=== PATIENT | female | born 1980 | race Caucasian/White ===

== ENCOUNTER 2016-02-26 11:34 | Emergency (ER) | payer BC ==
[2016-02-26 14:58] VITALS: BP 139/77
--- NOTE | 2016-02-26 15:46 | UC ---
Throat Pain/Nasal Mike HPI - HPI Summary HPI Summary: 35 yo female with severe sinus pressure and pain x days left facial swelling - History of Current Complaint Chief Complaint: UCRespiratory Stated Complaint: COUGH,COMGESTION,SINUS Time Seen by Provider: 02/26/16 15:21 Hx Last Menstrual Period: beginning of Jan. Onset/Duration: Gradual Onset, Lasting Hours Severity: Moderate Pain Intensity: 6 Pain Scale Used: 0-10 Numeric Cough: None Associated Signs & Symptoms: Positive: Sinus Discomfort, Nasal Discharge Related History: Prior ENT Surgery - sinus surgery, T & A - Epiglottits Risk Factors Epiglottis Risk Factors: Negative - Allergies/Home Medications Allergies/Adverse Reactions: Allergies Allergy/AdvReac Type Severity Reaction Status Date / Time milk Allergy Hives Uncoded 02/26/16 14:58 Home Medications: Home Medications Cold And Sinus Relief P E 2 tab PO Q8HR PRN 02/26/16 [History Confirmed 02/26/16 ] PMH/Surg Hx/FS Hx/Imm Hx Previously Healthy: Yes Endocrine History Of: Denies: Diabetes, Thyroid Disease Cardiovascular History Of: Denies: Cardiac Disorders, Hypertension Respiratory History Of: Reports: Asthma - Surgical History Surgical History: Yes Surgery Procedure, Year, and Place: T & A, R knee - Family History Known Family History: Positive: Hypertension, Diabetes - Social History Alcohol Use: Occasionally Substance Use Type: None Smoking Status (MU): Former Smoker Type: Cigarettes Length of Time of Smoking/Using Tobacco: 12 yrs When Did the Patient Quit Smoking/Using Tobacco: 9 yrs ago Review of Systems Constitutional: Negative Skin: Negative Eyes: Negative ENT: Dental Pain, Ear Ache, Nasal Discharge Respiratory: Cough Cardiovascular: Negative Gastrointestinal: Negative Genitourinary: Negative Motor: Negative Neurovascular: Negative Musculoskeletal: Negative Neurological: Negative Psychological: Negative All Other Systems Reviewed And Are Negative: Yes Physical Exam Triage Information Reviewed: Yes Appearance: Well-Appearing, No Pain Distress, Well-Nourished Vital Signs: Initial Vital Signs Temp 97.5 F 02/26/16 14:52 Pulse 84 02/26/16 14:52 Resp 20 02/26/16 14:52 BP 139/77 02/26/16 14:52 Pulse Ox 100 02/26/16 14:52 Vital Signs Reviewed: Yes Eyes: Positive: Conjunctiva Clear ENT: Positive: Hearing grossly normal, Nasal congestion, Nasal drainage, Other: - bilateral max sinus tenderness Neck: Positive: Supple, Nontender Respiratory: Positive: Lungs clear, Normal breath sounds, No respiratory distress Cardiovascular: Positive: RRR, No Murmur Musculoskeletal: Positive: ROM Intact, No Edema Neurological Exam: Normal Neurological: Positive: Alert Psychological Exam: Normal Skin Exam: Normal Throat Pain/Nasal Course/Dx - Differential Dx/Diagnosis Provider Diagnoses: acute sinusitis Discharge - Discharge Plan Condition: Stable Disposition: HOME Prescriptions: Amoxicillin/Clavulanate TAB* [Augmentin TAB 875*] 875 mg PO BID #20 tab Fluconazole 150 MG (NF) [Diflucan 150 mg (NF)] 150 mg PO WEEKLY #2 tab Patient Education Materials: Sinusitis (ED) Forms: *Work Release Referrals: Non Staff,Doctor [Primary Care Provider] - Additional Instructions: take diflucan if you develop a yeast infection may repeat in one week if necessary recheck in 4-7 days if not better
== END 2016-02-26 16:03 | disposition home or self-care (01) ==
LOC: UCCORT 11:34
DX: J01.90 Acute sinusitis, unspecified (principal); R22.0 Localized swelling, mass and lump, head; Z87.891 Personal history of nicotine dependence
CPT/HCPCS: 99212; G0463

== ENCOUNTER 2016-12-12 08:16 | Emergency (ER) | payer BC ==
[2016-12-12 08:25] VITALS: BP 120/74
--- NOTE | 2016-12-12 08:29 | UC ---
Knee Pain HPI - HPI Summary HPI Summary: 36 year old female with knee pain. states had a right knee meniscus repair in 2014 and since then knee hasn't fully recovered. States last night began having severe pain and was unable to walk up the stairs. 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 Currently c/o pain behind knee when trying to straighten it. No trauma. no falls. no injury. no SOB or CP. Pain with walking [ End ] - History of Current Complaint Chief Complaint: UCLowerExtremity Stated Complaint: RIGHT KNEE PAIN Time Seen by Provider: 12/12/16 08:27 Hx Obtained From: Patient Hx Last Menstrual Period: 12/01/16 Onset/Duration: Sudden Onset Severity Initially: Moderate Severity Currently: Moderate Character: Sharp Aggravating Factor(s): Movement, Weight Bearing, Stairs Alleviating Factor(s): Rest Related History: Similar Episode/Dx as - Allergies/Home Medications Allergies/Adverse Reactions: Allergies Allergy/AdvReac Type Severity Reaction Status Date / Time milk Allergy Hives Uncoded 12/12/16 08:25 PMH/Surg Hx/FS Hx/Imm Hx Previously Healthy: Yes - Surgical History Surgical History: Yes Surgery Procedure, Year, and Place: T & A, R knee - Family History Known Family History: Positive: Hypertension, Diabetes - Social History Occupation: Employed Full-time Lives: With Family Alcohol Use: Weekly Substance Use Type: None Smoking Status (MU): Former Smoker Type: Cigarettes Length of Time of Smoking/Using Tobacco: 12 yrs When Did the Patient Quit Smoking/Using Tobacco: 9 yrs ago - Immunization History Most Recent Influenza Vaccination: no Review of Systems Musculoskeletal: Arthralgia, Decreased ROM Is Patient Immunocompromised?: No All Other Systems Reviewed And Are Negative: Yes Physical Exam Triage Information Reviewed: Yes Appearance: Well-Appearing, Well-Nourished, Pain Distress - moderate Vital Signs: Initial Vital Signs Temp 98.3 F 12/12/16 08:20 Pulse 66 12/12/16 08:20 Resp 14 12/12/16 08:20 BP 120/74 12/12/16 08:20 Pulse Ox 100 12/12/16 08:20 Vital Signs Reviewed: Yes Respiratory Exam: Normal Cardiovascular Exam: Normal Musculoskeletal: Positive: Strength Intact, ROM Limited @ - pain with extension. neg homans. medial joint line tenderness and patellar tenderness. no ecchymosis. no erythema. no edema. no effusion. antalgic gait. skin warm and dry and intact. Negative: Edema @ Neurological Exam: Normal Psychological Exam: Normal Skin Exam: Normal Knee Pain Course/Dx - Course Course Of Treatment: Refer to Ortho, discussed ICE/ NSAIDs/ APAP . Could be torn ligament/meniscus on previously operated knee - Differential Dx/Diagnosis Differential Diagnosis/HQI/PQRI: Bursitis, Internal Derangement Of Knee, Patellofemoral Syndrome, Sprain, Strain, Tendonitis Provider Diagnoses: internal derangement of the right knee Discharge - Discharge Plan Condition: Good Disposition: HOME Patient Education Materials: Meniscus Tear (ED) Forms: *Work Release Referrals: Reed Rojas MD [Medical Doctor] -
== END 2016-12-12 08:58 | disposition home or self-care (01) ==
LOC: UCCORT 08:16
DX: M23.91 Unspecified internal derangement of right knee (principal); Z91.011 Allergy to milk products
CPT/HCPCS: 99213; G0463

== ENCOUNTER 2017-01-27 09:14 | Emergency (ER) | payer BC ==
[2017-01-27 09:39] VITALS: BP 122/66
--- NOTE | 2017-01-27 09:50 | UC ---
Throat Pain/Nasal Mike HPI - HPI Summary HPI Summary: sinus pain and pressure x 5 days cold sx x 10 days with nasal congestion, pnd, cough no fever, + chills - History of Current Complaint Chief Complaint: UCGeneralIllness Stated Complaint: EARS COUGH CONGESTION Time Seen by Provider: 01/27/17 09:42 Hx Obtained From: Patient Hx Last Menstrual Period: presently ?: No Onset/Duration: Gradual Onset, Lasting Weeks - 5, Still Present Severity: Moderate Cough: Nonproductive Associated Signs & Symptoms: Positive: Sinus Discomfort, Nasal Discharge. Negative: Fever - Allergies/Home Medications Allergies/Adverse Reactions: Allergies Allergy/AdvReac Type Severity Reaction Status Date / Time milk Allergy Hives Uncoded 12/17/16 14:02 Home Medications: Home Medications Misc Natural Products [Osteo Bi-Flex Joint Shiel] 01/27/17 [History] PMH/Surg Hx/FS Hx/Imm Hx Previously Healthy: Yes - Surgical History Surgical History: Yes Surgery Procedure, Year, and Place: T & A, R knee TORN MENISCUS - Family History Known Family History: Positive: Hypertension, Diabetes - Social History Alcohol Use: Weekly Substance Use Type: None Smoking Status (MU): Former Smoker Type: Cigarettes Length of Time of Smoking/Using Tobacco: 12 yrs When Did the Patient Quit Smoking/Using Tobacco: 9 yrs ago - Immunization History Most Recent Influenza Vaccination: not current Review of Systems Constitutional: Negative Skin: Negative Eyes: Negative ENT: Ear Ache, Nasal Discharge, Sinus Congestion, Sinus Pain/Tenderness Respiratory: Cough Cardiovascular: Negative Gastrointestinal: Negative Is Patient Immunocompromised?: No All Other Systems Reviewed And Are Negative: Yes Physical Exam Triage Information Reviewed: Yes Appearance: Well-Appearing, No Pain Distress, Well-Nourished Vital Signs: Initial Vital Signs Temp 97.5 F 01/27/17 09:35 Pulse 72 01/27/17 09:35 Resp 18 01/27/17 09:35 BP 122/66 01/27/17 09:35 Pulse Ox 99 01/27/17 09:35 Vital Signs Reviewed: Yes Eye Exam: Normal Eyes: Positive: Conjunctiva Clear ENT: Positive: Normal ENT inspection, Hearing grossly normal, Pharynx normal, Nasal congestion, Nasal drainage, TMs normal, Sinus tenderness. Negative: TM bulging, TM dull, TM red Neck: Positive: Supple, Nontender, No Lymphadenopathy Respiratory: Positive: Chest non-tender, Lungs clear, Normal breath sounds Cardiovascular: Positive: RRR, No Murmur, Pulses Normal Neurological Exam: Normal Skin Exam: Normal Throat Pain/Nasal Course/Dx - Differential Dx/Diagnosis Provider Diagnoses: sinusitis Discharge - Discharge Plan Condition: Stable Disposition: HOME Prescriptions: Amoxicillin/Clavulanate TAB* [Augmentin TAB 875*] 875 mg PO BID #20 tab Fluconazole [Diflucan 150 MG (NF)] 150 mg PO ONCE #1 tab Patient Education Materials: Sinusitis (ED) Referrals: Alvina Jones MD [Primary Care Provider] - If Needed
== END 2017-01-27 09:52 | disposition home or self-care (01) ==
LOC: UCCORT 09:14
DX: J32.9 Chronic sinusitis, unspecified (principal); Z87.891 Personal history of nicotine dependence
CPT/HCPCS: 99212; G0463

== ENCOUNTER 2017-03-08 18:20 | Emergency (ER) | payer BC ==
[2017-03-08 18:37] VITALS: BP 124/78
[2017-03-08] MEDS ORDERED: Cephalexin CAP* 500 MG PO ONE (19:02)
--- NOTE | 2017-03-08 19:06 | UC ---
Throat Pain/Nasal Mike HPI - HPI Summary HPI Summary: sinus congestion, sore throat, ear pressure, SOB and cough on exertion - History of Current Complaint Chief Complaint: UCGeneralIllness Stated Complaint: BHATTI/NAUSEA/FEVER Time Seen by Provider: 03/08/17 18:48 Hx Obtained From: Patient Hx Last Menstrual Period: 02/18/17 ?: No Onset/Duration: Sudden Onset, Lasting Days Severity: Moderate Associated Signs & Symptoms: Positive: Dysphagia, Wheezing, Sinus Discomfort, Nasal Discharge - Allergies/Home Medications Allergies/Adverse Reactions: Allergies Allergy/AdvReac Type Severity Reaction Status Date / Time milk Allergy Hives Uncoded 03/08/17 18:36 PMH/Surg Hx/FS Hx/Imm Hx Previously Healthy: Yes - Surgical History Surgical History: Yes Surgery Procedure, Year, and Place: T & A, R knee TORN MENISCUS - Family History Known Family History: Positive: Hypertension, Diabetes - Social History Alcohol Use: Weekly Substance Use Type: None Smoking Status (MU): Former Smoker Type: Cigarettes Length of Time of Smoking/Using Tobacco: 12 yrs When Did the Patient Quit Smoking/Using Tobacco: 9 yrs ago - Immunization History Most Recent Influenza Vaccination: not current Review of Systems Constitutional: Fever, Fatigue Skin: Negative Eyes: Negative ENT: Sore Throat, Ear Ache, Nasal Discharge, Sinus Congestion, Sinus Pain/ Tenderness Respiratory: Shortness Of Breath, Cough Cardiovascular: Negative Gastrointestinal: Negative Genitourinary: Negative Motor: Negative Neurovascular: Negative Musculoskeletal: Negative Neurological: Headache Psychological: Negative Is Patient Immunocompromised?: No All Other Systems Reviewed And Are Negative: Yes Physical Exam Triage Information Reviewed: Yes Appearance: Well-Appearing, Well-Nourished, Pain Distress Vital Signs: Initial Vital Signs Temp 97.6 F 03/08/17 18:32 Pulse 106 03/08/17 18:32 Resp 18 03/08/17 18:32 BP 124/78 03/08/17 18:32 Pulse Ox 100 03/08/17 18:32 Vital Signs Reviewed: Yes Eye Exam: Normal ENT: Positive: Pharyngeal erythema - pharyngeal exudate, Nasal congestion, Nasal drainage, TM bulging, Sinus tenderness Dental Exam: Normal Neck exam: Normal Neck: Positive: Supple, Nontender, No Lymphadenopathy Respiratory Exam: Normal Respiratory: Positive: Chest non-tender, No respiratory distress, No accessory muscle use, Wheezing, Inspiration Cardiovascular: Positive: No Murmur, Pulses Normal, Tachycardia Abdominal Exam: Normal Abdomen Description: Positive: Nontender, No Organomegaly, Soft Bowel Sounds: Positive: Present Musculoskeletal Exam: Normal Neurological Exam: Normal Psychological Exam: Normal Skin Exam: Normal Throat Pain/Nasal Course/Dx - Course Course Of Treatment: hx obtained, exam performed ,meds reviewed, treated for sinusisits and bronchospasm, neg flu and strep test - Differential Dx/Diagnosis Provider Diagnoses: sinusitis. bronchospasm Discharge - Discharge Plan Condition: Stable Disposition: HOME Prescriptions: Cephalexin CAP* [Keflex CAP*] 500 mg PO BID #13 cap predniSONE TAB* [Deltasone TAB*] 40 mg PO DAILY #14 tab Patient Education Materials: Sinusitis (ED) Referrals: Non Staff,Doctor [Primary Care Provider] - Additional Instructions: 1. take the medication as prescribe. 2 Increase fluid intake and get plenty of rest. 3. Advil for pain and headache 4. Steam showers, vicks, tea to loosen up the sinus congestion. 5. FOllow up as needed.
== END 2017-03-08 19:12 | disposition home or self-care (01) ==
LOC: UCCORT 18:20
DX: J32.9 Chronic sinusitis, unspecified (principal); J98.01 Acute bronchospasm; J02.9 Acute pharyngitis, unspecified; R06.02 Shortness of breath; R05 Cough; Z91.011 Allergy to milk products; Z87.891 Personal history of nicotine dependence
CPT/HCPCS: 87502; 87651; 99212; A9270-GY; G0463

== ENCOUNTER 2017-03-30 09:03 | Emergency (ER) | payer BC ==
[2017-03-30 10:01] VITALS: BP 116/66
[2017-03-30] MEDS ORDERED: Ketorolac INJ* 60 MG/2 ML VIAL IM ONE (10:21)
--- NOTE | 2017-03-30 10:21 | UC ---
Back Pain HPI - HPI Summary HPI Summary: for no apparent reason patient began with right SI Pain---radiates down throgh buttock and in to leg---not much relief with otc medication, no know injury - History of Current Complaint Chief Complaint: UCBackPain Stated Complaint: BACK PAIN Time Seen by Provider: 03/30/17 10:13 Hx Obtained From: Patient Hx Last Menstrual Period: 02/18/17 ?: No Onset/Duration: Sudden Onset, Lasting Days - 2, Still Present Timing: Constant Severity Initially: Moderate Severity Currently: Moderate Pain Intensity: 7 Pain Scale Used: 0-10 Numeric Back Pain: Is Discrete @ - right SI Character: Aching, Spasmodic, Stiffness Aggravating Factor(s): Movement, Bending Alleviating Factor(s): Rest, OTC Meds Associated Signs And Symptoms: Negative: Bladder Incontinence, Bowel Incontinence, Pain with Weight Bearing - Allergies/Home Medications Allergies/Adverse Reactions: Allergies Allergy/AdvReac Type Severity Reaction Status Date / Time milk Allergy Hives Uncoded 03/30/17 09:57 Home Medications: Home Medications Aspirin/Acetaminophen/Caffeine [Excedrin Extra Strength Caplet] 3 tab PO ONCE [History Confirmed 03/30/17] Ibuprofen TAB* [Advil TAB*] 600 mg PO Q6H PRN 03/30/17 [History Confirmed ] PMH/Surg Hx/FS Hx/Imm Hx Previously Healthy: Yes - Surgical History Surgical History: Yes Surgery Procedure, Year, and Place: T & A, R knee TORN MENISCUS - Family History Known Family History: Positive: Hypertension, Diabetes - Social History Occupation: Employed Full-time Lives: Alone Alcohol Use: Occasionally Substance Use Type: None Smoking Status (MU): Former Smoker Type: Cigarettes Length of Time of Smoking/Using Tobacco: ~1 PPD x 12 Years When Did the Patient Quit Smoking/Using Tobacco: ~2008 - Immunization History Most Recent Influenza Vaccination: not current Review of Systems Constitutional: Negative Skin: Negative Eyes: Negative ENT: Negative Respiratory: Negative Cardiovascular: Negative Gastrointestinal: Negative Genitourinary: Negative Motor: Negative Neurovascular: Negative Musculoskeletal: Arthralgia - right si joint radiating down buttock in to leg Neurological: Negative Psychological: Negative Is Patient Immunocompromised?: No All Other Systems Reviewed And Are Negative: Yes Physical Exam Triage Information Reviewed: Yes Appearance: Well-Appearing, No Pain Distress, Well-Nourished Vital Signs: Initial Vital Signs Temp 97.9 F 03/30/17 09:55 Pulse 70 03/30/17 09:55 Resp 16 03/30/17 09:55 BP 116/66 03/30/17 09:55 Pulse Ox 100 03/30/17 09:55 Vital Signs Reviewed: Yes Eye Exam: Normal Eyes: Positive: Conjunctiva Clear ENT Exam: Normal ENT: Positive: Normal ENT inspection, Hearing grossly normal, Pharynx normal. Negative: Nasal drainage, Trismus, Muffled voice, Hoarse voice, Dental tenderness, Sinus tenderness Dental Exam: Normal Neck exam: Normal Neck: Positive: Supple, Nontender, No Lymphadenopathy Respiratory Exam: Normal Respiratory: Positive: Chest non-tender, No respiratory distress, No accessory muscle use Cardiovascular Exam: Normal Cardiovascular: Positive: RRR, Pulses Normal, Brisk Capillary Refill Abdomen Description: Negative: CVA Tenderness (R) Musculoskeletal Exam: Normal Musculoskeletal: Positive: Strength Intact, No Edema, ROM Limited @ - low back Neurological Exam: Normal Neurological: Positive: Alert, Muscle Tone Normal Psychological Exam: Normal Skin Exam: Normal Back Pain Course/Dx - Course Course Of Treatment: medrol dose gareth, flexeril, pt referal low back exercise follow with pcp - Differential Dx/Diagnosis Provider Diagnoses: Right Siatic never pain Discharge - Discharge Plan Condition: Stable Disposition: HOME Patient Education Materials: Sciatica (ED), Lower Back Exercises (ED), Core Strengthening Exercises (ED) Forms: *Work Release Referrals: [facility] [place], [place] [facility] [Outside] - 5 Days
== END 2017-03-30 10:51 | disposition home or self-care (01) ==
LOC: UCCORT 09:03
DX: G58.8 Other specified mononeuropathies (principal); Z72.89 Other problems related to lifestyle; Z87.891 Personal history of nicotine dependence
CPT/HCPCS: 96372; 99212; G0463; J1885

== ENCOUNTER → 2017-06-09 11:10 | Emergency (ER) | payer BC ==
[~2017-06-09 11:10] MED LIST: Albuterol 2.5 MG/3 ML NEB.SOL* (0.083%) INH ONE
[2017-06-09 12:36] VITALS: BP 108/68
--- NOTE | 2017-06-09 12:46 | UC ---
General HPI - HPI Summary HPI Summary: pt is c/o a "sinus infection". she describes it as sinus pain, green bloody drainage and fever x 4 days. she had sinus surgery in 2000. she did very well until the past year citing this is her 4th infection and all are c/w her remote hx of sinus infections. pt also admits to cough, wheezing and sob. states she was dx with asthma in college. no cp. - History of Current Complaint Chief Complaint: UCRespiratory Stated Complaint: COUGH,CONGESTION,ST Time Seen by Provider: 06/09/17 12:37 Hx Obtained From: Patient Hx Last Menstrual Period: 05/25/17 Onset/Duration: Gradual Onset Timing: Constant Pain Intensity: 7 Aggravating: lumgs symptoms worse with exertion Associated Signs & Symptoms: Positive: Cough, Fever, Headache, SOB, Wheezing. Negative: Chest Pain - Allergy/Home Medications Allergies/Adverse Reactions: Allergies Allergy/AdvReac Type Severity Reaction Status Date / Time milk Allergy Hives Uncoded 06/09/17 12:36 Home Medications: Home Medications Naproxen Sodium [Naproxen Sodium 275 MG TAB] 2 tab PO ONCE PRN 06/09/17 [ History Confirmed 06/09/17] PMH/Surg Hx/FS Hx/Imm Hx - Additional Past Medical History Additional PMH: sinusitis Respiratory History: Asthma - Surgical History Surgical History: Yes Surgery Procedure, Year, and Place: T & A, R knee TORN MENISCUS, sinus surgery - Family History Known Family History: Positive: Hypertension, Diabetes - Social History Occupation: Employed Full-time Alcohol Use: Occasionally Substance Use Type: None Smoking Status (MU): Former Smoker Type: Cigarettes Length of Time of Smoking/Using Tobacco: ~1 PPD x 12 Years When Did the Patient Quit Smoking/Using Tobacco: ~2008 - Immunization History Most Recent Influenza Vaccination: not current Vaccination Up to Date: Yes Review of Systems Constitutional: Fever Skin: Negative Eyes: Negative ENT: Sinus Congestion, Sinus Pain/Tenderness Respiratory: Shortness Of Breath, Cough Cardiovascular: Negative Gastrointestinal: Negative Genitourinary: Negative Motor: Negative Neurovascular: Negative Musculoskeletal: Negative Neurological: Negative Psychological: Negative Is Patient Immunocompromised?: No All Other Systems Reviewed And Are Negative: Yes Physical Exam Triage Information Reviewed: Yes Appearance: Well-Appearing Vital Signs: Initial Vital Signs Temp 98.4 F 06/09/17 12:21 Pulse 80 06/09/17 12:21 Resp 16 06/09/17 12:21 BP 108/68 06/09/17 12:21 Pulse Ox 98 06/09/17 12:21 Vital Signs Reviewed: Yes Eyes: Positive: Conjunctiva Clear ENT: Positive: Pharynx normal, TMs normal, Sinus tenderness - with green drainage and boddy membranes Neck: Positive: Supple, Nontender, No Lymphadenopathy Respiratory: Positive: No accessory muscle use, Decreased breath sounds, Wheezing - scattered, Other: - cough is congested Cardiovascular: Positive: RRR, No Murmur Abdomen Description: Positive: Nontender, No Organomegaly, Soft. Negative: Distended, Guarding Bowel Sounds: Positive: Present Musculoskeletal: Positive: ROM Intact Neurological: Positive: Alert Psychological: Positive: Age Appropriate Behavior Skin Exam: Normal Re-Evaluation - Re-Evaluation Second Eval Change: Improved - no wheezing, cough and much better aeration. feels better. Course/Dx - Course Course Of Treatment: duration of illness short; however, with fever, bloody- purulent drainage, sinus pain this requires tx with antibiotic plus having asthma flare so will use steroid which will help both. pt advised to start flonase daily. will refer to ent and back to her pcp. - Differential Dx - Multi-Symptom Provider Diagnoses: sinusitis. asthma flare Discharge - Sign-Out/Discharge Documenting (check all that apply): Discharge - Discharge Plan Condition: Stable Disposition: HOME Prescriptions: Albuterol HFA INHALER* [Ventolin HFA Inhaler*] 2 puff INH Q6H #1 mdi Amoxicillin/Clavulanate TAB* [Augmentin TAB 875*] 875 mg PO BID #20 tab predniSONE TAB* [Deltasone TAB*] 40 mg PO DAILY #10 tab Patient Education Materials: Asthma (DC), Sinusitis (ED) Forms: *Work Release Referrals: Alvina Jones MD [Medical Doctor] - 7 Days Tj Butterfield MD [Medical Doctor] - 2 Weeks Additional Instructions: START FLONASE OVER THE COUNTER AND USE DAILY - Billing Disposition and Condition Condition: STABLE Disposition: HOME
== END | disposition home or self-care (01) ==
LOC: UCCORT 11:10
DX: J32.9 Chronic sinusitis, unspecified (principal); J45.909 Unspecified asthma, uncomplicated; Z87.891 Personal history of nicotine dependence
CPT/HCPCS: 99212; G0463

== ENCOUNTER 2017-08-07 16:08 | Emergency (ER) | payer BC ==
--- OUTSIDE RECORDS SUMMARY | 2017-08-07 16:25 | XMS REPORT ---
:1980 External Reference #:[id number] Author Organization [facility] Address [address] [address] Phone [phone] Care Team Providers Name Role Phone Patient's Choice Primary Care Physician Unavailable Payers Type Date Identification Numbers Payment Provider Subscriber Commercial Policy Number: [id number] BS Facets Diana Ho PayID: [id number] [address] [address] [place] [address] Problems Description No Information Family History Date Family Member(s) Problem(s) Comments General Diabetes Father paternal grandfather-heart issues-had triple bipass. 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 Stopped during pregnancies. Cigars Never Smoked Cigars Pipe Never Smoked A Pipe Smokeless Tobacco Never Used Smokeless Tobacco ETOH Use Currently consumes alcohol socially. Maybe 1 or 2 a week Smoking Patient is a former smoker Recreational Drug Use Denies Drug Use Daily Caffeine Consumes on average 3 cups of regular coffee per day Exercise Type/Frequency Exercises regularly Allergies, Adverse Reactions, Alerts Date Description Reaction Status Severity Comments 06/26/2017 Milk Fat, Cow active 12/12/2016 NKDA inactive Medications Medication Date Status Form Strength Qnty SIG Indications Ordering Provider Ibuprofen Active Capsules 200mg 2 or 3 Unknown 00 tabs by mouth as needed Naprosyn 12/24/19 Hx Tablets 500mg 60tabs 1 by mouth M22.41 Reed Vera 17 - twice a MD Bob 06/30/19 day w food 18 Medications Administered in Office Medication Date Status Form Strength Qnty SIG Indications Ordering Provider Celestone 3 mg Administered Injection Reed Vera and 3mg Kriss Rojas MD Vital Signs Date Vital Result Comment 07/14/2017 Height 60.50 inches 5'0.50" Weight 220.00 lb Heart Rate 78 /min BP Systolic Sitting 110 mmHg BP Diastolic Sitting 64 mmHg Respiratory Rate 12 /min Pain Level 0 BMI (Body Mass Index) 42.3 kg/m2 06/30/2017 Height 60.50 inches 5'0.50" Weight 220.00 lb Heart Rate 55 /min BP Systolic 114 mmHg BP Diastolic 82 mmHg Respiratory Rate 16 /min Pain Level 0 O2 % BldC Oximetry 98 % BMI (Body Mass Index) 42.3 kg/m2 03/03/2017 Height 61 inches 5'1" Weight 208.00 lb Heart Rate 72 /min BP Systolic Sitting 110 mmHg BP Diastolic Sitting 64 mmHg Respiratory Rate 18 /min Pain Level 0 BMI (Body Mass Index) 39.3 kg/m2 12/23/2016 Height 61 inches 5'1" Weight 210.00 lb Heart Rate 66 /min BP Systolic Sitting 100 mmHg BP Diastolic Sitting 60 mmHg Respiratory Rate 12 /min Pain Level 3 BMI (Body Mass Index) 39.7 kg/m2 12/12/2016 Height 61 inches 5'1" Weight 205.00 lb Heart Rate 72 /min BP Systolic Sitting 114 mmHg BP Diastolic Sitting 62 mmHg Respiratory Rate 16 /min Pain Level 5 BMI (Body Mass Index) 38.7 kg/m2 Results Description No Information Procedures Date CPT Code Description Status 12/12/2016 43990 Xray Knee 3 Views Completed 12/12/2016 34192 Inject/Drain Joint/Bursa Major Completed Encounters Type Date Location Provider CPT E/M Dx Office Visit 06/30/2017 3:30p [facility] [address] J32.[facility] 03/03/2017 3:00p [place] [address] M22.41 Of [facility] [place] Office Visit 12/23/2016 3:30p [place] [address] M22.41 Of [facility] [place] Office Visit 12/12/2016 10:15a [place] [address] S83.241A Of [facility] AT [place] M25.561 Plan of Care Future Appointment(s):10/20/2017 2:45 pm - Feliciano Moise M.D. at [facility] [place]
[2017-08-07 16:47] VITALS: BP 110/71
[2017-08-07] MEDS ORDERED: Tetan/Diph/Pertus SYR(Tdap)* 0.5 ML SYR(BOOSTRIX) use SYR IM ONE (16:54)
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
== END 2017-08-07 17:30 | disposition home or self-care (01) ==
LOC: UCCORT 16:08
DX: S40.812A Abrasion of left upper arm, initial encounter (principal); S40.811A Abrasion of right upper arm, initial encounter; Y04.8XXA Assault by other bodily force, initial encounter; Y93.9 Activity, unspecified; Y92.219 Unspecified school as the place of occurrence of the external cause; Z87.891 Personal history of nicotine dependence
CPT/HCPCS: 90471; 90715; 99211; G0463

== ENCOUNTER 2018-06-07 14:07 | Emergency (ER) | payer BC ==
[2018-06-07 16:29] VITALS: BP 124/68
--- NOTE | 2018-06-07 16:41 | UC ---
Back Pain HPI - HPI Summary HPI Summary: Doing laundry yesterday with the sudden onset of left sided low back pain radiating down the back of the leg but not to the knee. Some numbness in the toes, but no pain radiating to the toes. - History of Current Complaint Chief Complaint: UCBackPain Stated Complaint: LOW BACK PAIN Time Seen by Provider: 06/07/18 16:33 Hx Obtained From: Patient Hx Last Menstrual Period: "couple weeks ago" ?: No Onset/Duration: Sudden Onset, Lasting Days - 2, Worse Since - today Timing: Constant Severity Initially: Moderate Severity Currently: Severe Pain Intensity: 7 Back Pain: Is Discrete @ - Left SI, Radiates To - left posterior upper leg Aggravating Factor(s): Walking, Other - standing Alleviating Factor(s): Rest, Position Associated Signs And Symptoms: Positive: Numbness - left foot, Tingling - left foot, Pain with Weight Bearing. Negative: Bladder Incontinence, Bowel Incontinence - Allergies/Home Medications Allergies/Adverse Reactions: Allergies Allergy/AdvReac Type Severity Reaction Status Date / Time milk Allergy Hives Uncoded 06/07/18 16:26 Home Medications: Home Medications NK [No Home Medications Reported] 06/07/18 [History Confirmed 06/07/18] PMH/Surg Hx/FS Hx/Imm Hx Previously Healthy: Yes - Surgical History Surgical History: Yes Surgery Procedure, Year, and Place: T & A, R knee TORN MENISCUS, sinus surgery 2000 - Family History Known Family History: Positive: Cardiac Disease, Hypertension, Diabetes - Social History Occupation: Employed Full-time Lives: With Family Alcohol Use: Occasionally Alcohol Amount: 1-2 Substance Use Type: None Smoking Status (MU): Former Smoker Type: Cigarettes Length of Time of Smoking/Using Tobacco: ~1 PPD x 12 Years When Did the Patient Quit Smoking/Using Tobacco: ~2008 - Immunization History Most Recent Influenza Vaccination: not current Most Recent Tetanus Shot: 2007 Vaccination Up to Date: Yes Review of Systems All Other Systems Reviewed And Are Negative: Yes Musculoskeletal: Positive: Arthralgia - left lower back Is Patient Immunocompromised?: No Physical Exam Triage Information Reviewed: Yes Appearance: Well-Appearing, Pain Distress - moderate to severe, Obese Vital Signs: Initial Vital Signs Temp 97.6 F 06/07/18 16:26 Pulse 74 06/07/18 16:26 Resp 16 06/07/18 16:26 BP 124/68 06/07/18 16:26 Pulse Ox 100 06/07/18 16:26 Vital Signs Reviewed: Yes Eyes: Positive: Conjunctiva Clear Neck exam: Normal Respiratory Exam: Normal Cardiovascular Exam: Normal Musculoskeletal: Positive: ROM Limited @ - Lumbar spine Neurological Exam: Normal Psychological Exam: Normal Skin Exam: Normal Procedures - Procedure Summary Procedure Summary: Injection left SI joint: Consent and time out done. Betadine prep. 7 cc injected in 3 point approach above the left SI. 1 cc kenalog 40, 3cc each 1% xylocaine and 0.25% bupivacaine. Pt tolerated the procedure well. Excellent pain relief. Back Pain Course/Dx - Differential Dx/Diagnosis Differential Diagnosis/HQI/PQRI: Arthritis, Herniated Disc, Strain, Sprain Provider Diagnosis: Sacroiliitis Discharge - Sign-Out/Discharge Documenting (check all that apply): Patient Departure All imaging exams completed and their final reports reviewed: No Studies - Discharge Plan Condition: Stable Disposition: HOME Patient Education Materials: Sacroiliitis (ED), Sacroiliac Joint Injection (DC) Referrals: Maria Arnold NP [Primary Care Provider] - Additional Instructions: Please make follow up with chiropractor tomorrow. If the pain is worse tomorrow, use ice over the area. - Billing Disposition and Condition Condition: STABLE Disposition: Home
[2018-06-07] MEDS ORDERED: Bupivacaine 0.5%* 50 ML VIAL INJ ONE (16:44)
[2018-06-07] MEDS ORDERED: Triamcinolone Acetonide* 40 MG/ML 1 ML VIAL INTRAARTIC ONE (16:44)
[2018-06-07] MEDS ORDERED: Lidocaine 1% MPF* 2 ML VIAL INJ ONE (16:44)
[2018-06-07] MEDS ORDERED: Bupivacaine 0.25% SDV* 30 ML INJ ONE (16:48)
[2018-06-07] MEDS ORDERED: Bupivacaine 0.25% SDV PF* 10 ML VIAL INJ ONE (16:48)
== END 2018-06-07 17:17 | disposition home or self-care (01) ==
LOC: UCCORT 14:07
DX: M46.1 Sacroiliitis, not elsewhere classified (principal); E66.9 Obesity, unspecified; Z68.39 Body mass index [BMI] 39.0-39.9, adult; Z87.891 Personal history of nicotine dependence
CPT/HCPCS: 20552; 99211; G0463; J3301; J3490

== ENCOUNTER 2019-04-28 15:46 | Emergency (ER) | payer BC ==
--- OUTSIDE RECORDS SUMMARY | 2019-04-28 16:17 | XMS REPORT ---
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, menstruation with regular [place] [address] cycle N92.0 and Encounter for insertion of intrauterine contraceptive device Z30.430 [facility] [address] Jan, OBGYN [place], [place] [id number] [facility] [address] Jan, Excessive and frequent OBGYN [facility], menstruation with regular [place] [address] cycle N92.0 and Dysplasia of vulva, unspecified N90.3 [facility] 103 Sep, Excessive and frequent OBGYN [facility], menstruation with regular [place] [address] cycle N92.0 and Dysplasia of vulva, unspecified N90.3 [facility] [address] Aug, OBGYN [facility] [place] [id number] [facility] 103 Aug, Dysplasia of vulva, OBGYN [facility], unspecified N90.3 [place] [id number] [facility] 103 Aug, Excessive and frequent OBGYN [facility], menstruation with regular [place] [address] cycle N92.0 [facility] 103 Aug, OBGYN [facility], [place] [id number] [facility] 103 Aug, Excessive and frequent OBGYN [facility], menstruation with regular [place] [address] cycle N92.0 and Dysplasia of vulva, unspecified N90.3 [facility] 103 Jul, Excessive and frequent OBGYN [facility], menstruation with regular [place] [address] cycle N92.0 and Dysplasia of vulva, unspecified N90.3 [facility] 103 Jul, Excessive and frequent OBGYN [facility], menstruation with regular [place] [address] cycle N92.0 and Dysplasia of vulva, unspecified N90.3 [facility] 103 Jul, OBGYN [facility], [place] [id number] [facility] [address] June, OBGYN [facility], [place] [id number] [facility] 103 June, Excessive and frequent OBGYN [facility], menstruation with regular [place] [address] cycle N92.0 and Noninflammatory disorder of vulva and perineum, unspecified N90.9 [facility] June, Irregular menstruation, OBGYN [facility], unspecified N92.6 [place] [id number] [facility] June, Irregular menstruation, OBGYN [facility], unspecified N92.6 and [place] [id number] Excessive and frequent menstruation with regular cycle N92.0 [facility] [address] June, Encounter for [facility], gynecological examination [place] [id number] (general) (routine) with abnormal findings Z01.411 ; Encounter for screening for malignant neoplasm of cervix Z12.4 ; Irregular menstruation, unspecified N92.6 and Noninflammatory disorder of vulva and perineum, unspecified N90.9 [facility] May, [facility] [place] [id number] [facility] May, Menorrhagia 626.2 ; [facility] 625.9 and Abdominal [place] [id number] pain, right upper quadrant 789.01 [facility] May, Menorrhagia [address]26.[address] [facility], Dyspareunia 625.0 [place] [id number] [facility] Apr, Menorrhagia [address]26.[address] [facility], Dyspareunia 625.0 [place] [id number] IMMUNIZATIONS No Known Immunizations SOCIAL HISTORY Never Assessed REASON FOR REFERRAL FUNCTIONAL STATUS PLAN OF CARE VITAL SIGNS MEDICATIONS Unknown Medications PROCEDURES No Known procedures RESULTS No Results REASON FOR VISIT Anjel jauregui Insurance Providers [facility] Member Patient Patient Patient Patient Patient Subscriber Subscriber Subscriber Group Insurance Plan Plan Plan Plan ID Relationship Address Phone Name Date of ID Name Date of No Type Insurance Insurance Insurance Coverage to Subscriber Address Phone Name Dates [employer] [phone] Leydi self Diana [id number] Blue [id number] Blue [place] 2 Cross/Blue [place] Cross/Blue [place] Shield [id number] Shield MEDICAL (GENERAL) HISTORY Type Description Date Medical History asthma Surgical History adnoidectomy/deviated septum 2000 Surgical History tonsilectomy 2010 Surgical History right meniscus repair 2013 Hospitalization History see above Hospitalization History child x 4
--- OUTSIDE RECORDS SUMMARY | 2019-04-28 16:17 | XMS REPORT ---
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 281740860 unspecified Problem Noninflammatory N90.9 Active 576365418 disorder of vulva and perineum, unspecified Problem Irregular N92.6 Active 88215721 menstruation, unspecified ALLERGIES Substance Reaction Event Type Date Status Milk hives/trouble breathing Drug Allergy Mar, Active ENCOUNTERS Encounter Location Date Diagnosis [facility] [address] Sep, [place] [id number] [facility] [address] June, OBGYN [place], [place] [id number] [facility] 103 Mar, Excessive and frequent OBGYN [facility], menstruation with regular [place] [address] cycle N92.0 and Dysplasia of vulva, unspecified N90.3 [facility] Feb, Encounter for routine OBGYN [facility], checking of intrauterine [place] [id number] contraceptive device Z30.431 [facility] 103 Jan, Excessive and frequent OBGYN [facility], menstruation with regular [place] [address] cycle N92.0 and Encounter for insertion of intrauterine contraceptive device Z30.430 [facility] Jan, OBGYN [facility], [place] [id number] [facility] 103 Jan, Excessive and frequent OBGYN [facility], menstruation with regular [place] [address] cycle N92.0 and Dysplasia of vulva, unspecified N90.3 [facility] 103 Sep, Excessive and frequent OBGYN [facility], menstruation with regular [place] [address] cycle N92.0 and Dysplasia of vulva, unspecified N90.3 [facility] 103 Aug, OBGYN [facility], [place] [id number] [facility] 103 Aug, Dysplasia of vulva, OBGYN [facility], unspecified N90.3 [place] [id number] [facility] 103 Aug, Excessive and frequent OBGYN [facility], menstruation with regular [place] [address] cycle N92.0 [facility] 103 Aug, OBGYN [facility], [place] [id number] [facility] 103 Aug, Excessive and frequent OBGYN [facility], menstruation with regular [place] [address] cycle N92.0 and Dysplasia of vulva, unspecified N90.3 [facility] 103 Jul, Excessive and frequent OBGYN [facility], menstruation with regular [place] [address] cycle N92.0 and Dysplasia of vulva, unspecified N90.3 [facility] 103 Jul, Excessive and frequent OBGYN [facility], menstruation with regular [place] [address] cycle N92.0 and Dysplasia of vulva, unspecified N90.3 [facility] 103 Jul, [place]BG[place], [place] [id number] [facility] [address] June, [place]BG[place], [place] [id number] [facility] [address] June, Excessive and frequent OBGYN [facility], menstruation with regular [place] [address] cycle N92.0 and Noninflammatory disorder of vulva and perineum, unspecified N90.9 [facility] [address] June, Irregular menstruation, OBGYN [facility], unspecified N92.6 [place] [id number] [facility] [address] June, Irregular menstruation, OBGYN [facility], unspecified N92.6 and [place] [id number] Excessive and frequent menstruation with regular cycle N92.0 [facility] [address] June, [facility] [place] [id number] (general) (routine) with abnormal findings Z01.411 ; Encounter for screening for malignant neoplasm of cervix Z12.4 ; Irregular menstruation, unspecified N92.6 and Noninflammatory disorder of vulva and perineum, unspecified N90.9 [facility] [address] May, OBGYN [place], [place] [id number] [facility] [address] May, Menorrhagia 626.2 ; PELVIC OBGYN [facility], PAIN 625.9 and Abdominal [place] [id number] pain, right upper quadrant 789.01 [facility] [address] May, Menorrhagia 626.2 and OBGYN [facility], Dyspareunia 625.0 [place] [id number] [facility] 103 Apr, Menorrhagia 626.2 and OBGYN [facility], Dyspareunia 625.0 [place] [id number] IMMUNIZATIONS No Known Immunizations SOCIAL HISTORY Never Assessed REASON FOR REFERRAL FUNCTIONAL STATUS PLAN OF CARE Activity Details Follow Up Schedule vulvar colpo in 6 months. Annual scheduled in June. Reason: VITAL SIGNS Height 61 in 2019-04-12 Weight 221 lbs 2019-04-12 BMI 41.75 kg/m2 2019-04-12 Blood pressure systolic 108 mm Hg 2019-04-12 Blood pressure diastolic 70 mm Hg 2019-04-12 MEDICATIONS Medication Instructions Dosage Frequency Start End Date Duration Status Date Liletta 52 mg by intrauterine 1 ea 1 dose(s) Active administration once Strattera 80 orally once a day 1 cap(s) 30 day(s) Active mg (in the morning) PROCEDURES Procedure Date Ordered Result Body Site COLPO EXAM OF VULVA W/SCOPE Apr 12, 2019 RESULTS No Results REASON FOR VISIT Vulvar Colpo Insurance Providers [facility] Member Patient Patient Patient Patient Patient Subscriber Subscriber Subscriber Group Insurance Plan Plan Plan Plan ID Relationship Address Phone Name Date of ID Name Date of No Type Insurance Insurance Insurance Coverage to Subscriber Address Phone Name Dates Leydi [phone] Leydi self Diana [id number] Blue [id number] Blue [place] 2 Cross/Blue [place] Cross/Blue y Shield [id number] Shield MEDICAL (GENERAL) HISTORY Type Description Date Medical History asthma Surgical History adnoidectomy/deviated septum 2000 Surgical History tonsilectomy 2010 Surgical History right meniscus repair 2013 Hospitalization History see above Hospitalization History child x 4
--- OUTSIDE RECORDS SUMMARY | 2019-04-28 16:17 | XMS REPORT | Continuity of Care Document ---
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 Problems Description No Active Problems Social History Type Date Description Comments Sex Unknown Tobacco Use Start: Unknown End: Quit 2005 Unknown ETOH Use Occasionally consumes alcohol Tobacco Use Start: Unknown End: Patient is a former started age 13 - smoker less than 10 pack year history Smoking Status Reviewed: 04/06/19 Patient is a former started age 13 - smoker less than 10 pack year history Exercise Exercises regularly Type/Frequency Allergies, Adverse Reactions, Alerts Active Allergies Reaction Severity Comments Date Milk Fat, Cow 01/26/2018 Inactive Allergies NKDA 12/02/2012 NKDA 09/09/2014 Medications Active Medications SIG Qnty Indications Ordering Provider Date Strattera 1 tab PO QHS x 7 60caps F90.0 [place], 03/15/2019 40mg Capsules days then Jenniferleigh, increase to two TIMBER SIZER OPERATOR PO QHS Ondansetron HCL 1 tab every 6hr [facility]tabs [facility], 03/15/2019 4mg as needed for Cassius, Tablets nausea TIMBER SIZER OPERATOR Ibuprofen prn Shakira, 200mg Tablets MD Anjel House (52 MG) remove in 6 years Unknown 01/2025 19.5mcg/Day IUD Medications Administered in Office Medication SIG Qnty Indications Ordering Provider Date PPD Family Nurse 03/12/2019 Injection Depomedrol 40mg/1cc Lawsing, Som F., MD, 12/02/2012 (methylprednisolone acetate) FACS Injection Depomedrol 40mg/1cc Tj Rosen D.O. 12/02/2012 (methylprednisolone acetate) Injection Immunizations CPT Code Status Date Vaccine Lot # [id number] Given 03/15/2019 Influenza Virus Vaccine, Quadrivalent, 36 Mos+, [id number] .[id number] Given 12/15/2017 Influenza Virus Vaccine, Quadrivalent, 36 Mos+, [id number] .[id number] Given 11/13/2009 flu vaccination Vital Signs Date Vital Result Comment 04/06/2019 3:15pm BP Systolic 110 mmHg BP Diastolic 68 mmHg Body Temperature 98.1 F Heart Rate 87 /min Respiratory Rate 18 /min Height 61 inches 5'1" Weight 220.38 lb BMI (Body Mass Index) 41.6 kg/m2 BSA (Body Surface Area) 1.97 m2 [place] body weight in kilograms 48 kg O2 % BldC Oximetry 98 % 03/15/2019 11:39am BP Systolic 109 mmHg BP Diastolic 74 mmHg Body Temperature 98.2 F Heart Rate 91 /min Respiratory Rate 18 /min Height 61 inches 5'1" Weight 222.50 lb BMI (Body Mass Index) 42.0 kg/m2 BSA (Body Surface Area) 1.98 m2 [place] body weight in kilograms 48 kg O2 % BldC Oximetry 99 % Results Description No Information Available Procedures Description No Information Available Medical Devices Description No Information Available Encounters Type Date Location Provider Dx Diagnosis Office Visit 04/06/2019 [facility] [place], F90.0 Attn-defct 3:[address] anthony Hammonds disorder, predom inattentive type F41.9 Anxiety disorder, unspecified Office Visit 03/15/2019 [facility] [place], Z00.01 Encounter for 11:[facility] [place] MICHELLE Hammonds general adult RD medical exam w abnormal findings Z02.1 Encounter for pre-employment examination F90.0 Attn-defct hyperactivity disorder, 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, predom inattentive type F41.9 Anxiety disorder, unspecified Z23 Encounter for immunization Assessments Date Code Description Provider 04/06/2019 F90.0 Attention-deficit hyperactivity disorder, Cassius Arnold FNP predominantly inattentive type 04/06/2019 F41.9 Anxiety disorder, unspecified Cassius Arnold FNP 03/15/2019 Z00.01 Encounter for general adult medical Cassius Arnold FNP examination with abnormal findings 03/15/2019 Z02.1 Encounter for pre-employment examination Cassius Arnold FNP 03/15/2019 F90.0 Attention-deficit hyperactivity disorder, Cassius Arnold FNP predominantly inattentive type 03/15/2019 F90.0 Attention-deficit hyperactivity disorder, Cassius Arnold FNP predominantly inattentive type 03/15/2019 F41.9 Anxiety disorder, unspecified Cassius Arnold FNP 03/15/2019 Z23 Encounter for immunization Cassius Arnold FNP 03/12/2019 Z11.1 Encounter for screening for respiratory Jo Cooley MD tuberculosis 03/12/2019 Z11.1 Encounter for screening for respiratory Family Nurse tuberculosis Plan of Treatment Future Appointment(s):05/03/2019 3:30 pm - Cassius Arnold FNP at [facility] RD Functional Status Functional Condition Comment Date Status Independent with all ADL's Active Glasses Active Mental Status Description No Information Available Referrals Description No Information Available
--- OUTSIDE RECORDS SUMMARY | 2019-04-28 16:17 | XMS REPORT | Continuity of Care Document ---
:1980 External Reference #:[id number] Author Name Cassius Arnold FNP Address [address] [place] [id number] Care Team Providers Name Role Phone Cassius Arnold REPAIR TECH - Nurse Care Team Information Hospital Intern Practitioner Problems Description No Active Problems Social History Type Date Description Comments Sex Unknown Tobacco Use Start: Unknown End: Quit 2005 Unknown ETOH Use Occasionally consumes alcohol Tobacco Use Start: Unknown End: Patient is a former started age 13 - smoker less than 10 pack year history Smoking Status Reviewed: 03/15/19 Patient is a former started age 13 - smoker less than 10 pack year history Exercise Exercises regularly Type/Frequency Allergies, Adverse Reactions, Alerts Active Allergies Reaction Severity Comments Date Milk Fat, Cow 01/26/2018 Inactive Allergies NKDA 12/02/2012 NKDA 09/09/2014 Medications Active Medications SIG Qnty Indications Ordering Provider Date Strattera 1 tab PO QHS x 7 60caps F90.0 [place], 03/15/2019 40mg Capsules days then Jenniferleigh, increase to two ADDICTION PSYCHIATRIST PO QHS Ondansetron HCL 1 tab every 6hr [facility]tabs [facility], 03/15/2019 4mg as needed for Cassius, Tablets nausea ADDICTION PSYCHIATRIST Ibuprofen prn Shakira, 200mg Tablets MD Anjel House (52 MG) remove in 6 years Unknown 01/2025 19.5mcg/Day IUD Medications Administered in Office Medication SIG Qnty Indications Ordering Provider Date PPD Family Nurse 03/12/2019 Injection Depomedrol 40mg/1cc Lawsing, Som F., MD, 12/02/2012 (methylprednisolone acetate) FACS Injection Depomedrol 40mg/1cc Tj Rosen D.O. 12/02/2012 (methylprednisolone acetate) Injection Immunizations CPT Code Status Date Vaccine Lot # [id number] Given 12/15/2017 Influenza Virus Vaccine, Quadrivalent, 36 Mos+, [id number] .[id number] Given 11/13/2009 flu vaccination Vital Signs Date Vital Result Comment 03/15/2019 11:39am BP Systolic 109 mmHg BP Diastolic 74 mmHg Body Temperature 98.2 F Heart Rate 91 /min Respiratory Rate 18 /min Height 61 inches 5'1" Weight 222.50 lb BMI (Body Mass Index) 42.0 kg/m2 BSA (Body Surface Area) 1.98 m2 [place] body weight in kilograms 48 kg O2 % BldC Oximetry 99 % 12/15/2017 3:20pm BP Systolic 0 mmHg BP Diastolic 0 mmHg BP Systolic Sitting Left Arm 118 mmHg BP Diastolic Sitting Left Arm 74 mmHg Heart Rate 78 /min Respiratory Rate 18 /min Height 61 inches 5'1" Weight 213.00 lb BMI (Body Mass Index) 40.2 kg/m2 BSA (Body Surface Area) 1.94 m2 [place] body weight in kilograms 48 kg Last Menstrual Period [id number] Results Description No Information Available Procedures Description No Information Available Medical Devices Description No Information Available Encounters Description No Information Available Assessments Date Code Description Provider 03/15/2019 Z02.1 Encounter for pre-employment examination Cassius Arnold FNP 03/15/2019 F90.0 Attention-deficit hyperactivity disorder, Cassius Arnold FNP predominantly inattentive type 03/15/2019 F41.9 Anxiety disorder, unspecified Cassius Arnold FNP 03/12/2019 Z11.1 Encounter for screening for respiratory Jo Cooley MD tuberculosis 03/12/2019 Z11.1 Encounter for screening for respiratory Family Nurse tuberculosis Plan of Treatment 03/15/2019 - Cassius Arnold FNPZ02.1 Encounter for pre-employment examinationComments:Immunizations reviewed and updated with yearly flu shotPPD read as negativeFree from communicable disease and cleared for work without [id number] Attention-deficit hyperactivity disorder, predominantly inattentive typeNew Medication:Strattera 40 mg - 1 tab PO QHS x 7 days then increase to two PO QHSComments:restart medication on ирина slow taper, use of antinausea medicationFollow up: recheck 15 minF41.9 Anxiety disorder, unspecifiedComments:therapy as scheduled Functional Status Functional Condition Comment Date Status Independent with all ADL's Active Glasses Active Mental Status Description No Information Available Referrals Description No Information Available
--- OUTSIDE RECORDS SUMMARY | 2019-04-28 16:17 | XMS REPORT ---
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 417977532 unspecified Problem Noninflammatory N90.9 Active 873379969 disorder of vulva and perineum, unspecified Problem Irregular N92.6 Active 99697503 menstruation, unspecified ALLERGIES Substance Reaction Event Type Date Status Milk hives/trouble breathing Drug Allergy Jan, Active ENCOUNTERS Encounter Location Date Diagnosis [facility] [address] June, [place]BGYN [place], [place] [id number] [facility] Mar, [place]BG[place], [place] [id number] [facility] Feb, [place]BG[place], [place] [id number] [facility] Jan, Excessive and frequent OBGYN [facility], menstruation with regular [place] [address] cycle N92.0 and Encounter for insertion of intrauterine contraceptive device Z30.430 [place] [facility] Jan, [place]BGYN [place], [place] [id number] [facility] Jan, Excessive and frequent OBGYN [facility], menstruation with regular [place] [address] cycle N92.0 and Dysplasia of vulva, unspecified N90.3 [place] [facility] Sep, Excessive and frequent OBGYN [facility], menstruation with regular [place] [address] cycle N92.0 and Dysplasia of vulva, unspecified N90.3 [place] [facility] Aug, OBGYN [facility] [id number] [place] [facility] Aug, Dysplasia of vulva, OBGYN [facility], unspecified N90.3 [place] [id number] [place] [facility] 103 Aug, Excessive and frequent OBGYN [facility], menstruation with regular [place] [address] cycle N92.0 [place] [facility] Aug, OBG[facility] [id number] [place] [facility] Aug, Excessive and frequent OBGYN [facility], menstruation with regular [place] [address] cycle N92.0 and Dysplasia of vulva, unspecified N90.3 [place] [facility] Jul, Excessive and frequent OBGYN [facility], menstruation with regular [place] [address] cycle N92.0 and Dysplasia of vulva, unspecified N90.3 [place] [facility] Jul, Excessive and frequent OBGYN [facility], menstruation with regular [place] [address] cycle N92.0 and Dysplasia of vulva, unspecified N90.3 [place] [facility] Jul, OBGYN [facility] [id number] [place] [facility] [address] June, [facility]BG[facility] [id number] [place] [facility] June, Excessive and frequent OBGYN [facility], menstruation with regular [place] [address] cycle N92.0 and Noninflammatory disorder of vulva and perineum, unspecified N90.9 [facility] June, Irregular menstruation, OBGYN [facility], unspecified N92.6 [place] [id number] [facility] June, Irregular menstruation, OBGYN [facility], unspecified N92.6 and [place] [id number] Excessive and frequent menstruation with regular cycle N92.0 [facility] June, Encounter for [facility], gynecological examination [place] [id number] (general) (routine) with abnormal findings Z01.411 ; Encounter for screening for malignant neoplasm of cervix Z12.4 ; Irregular menstruation, unspecified N92.6 and Noninflammatory disorder of vulva and perineum, unspecified N90.9 [facility] May, OBG[facility] [id number] [facility] May, Menorrhagia 626.2 ; PELVIC OBGYN [facility], PAIN 625.9 and Abdominal [place] [id number] pain, right upper quadrant 789.01 [facility] May, Menorrhagia 626.2 and OBGYN [facility], Dyspareunia 625.0 [place] [id number] [facility] Apr, Menorrhagia 626.2 and OBGYN [facility], Dyspareunia 625.0 [place] [id number] IMMUNIZATIONS No Known Immunizations SOCIAL HISTORY Never Assessed REASON FOR REFERRAL FUNCTIONAL STATUS PLAN OF CARE Activity Details Follow Up 4-6 weeks IUD check Reason: VITAL SIGNS Height 61 in 2019-01-28 Weight 221 lbs 2019-01-28 BMI 41.75 kg/m2 2019-01-28 Blood pressure systolic 112 mm Hg 2019-01-28 Blood pressure diastolic 78 mm Hg 2019-01-28 MEDICATIONS Unknown Medications PROCEDURES Procedure Date Ordered Result Body Site LNG-RELEASING IUC SYS 52MG 3 YR DUR Jan 28, 2019 IUD INSERTION Jan 28, 2019 URINE TEST Jan 28, 2019 RESULTS Name Result Date Reference Range URINE TEST REASON FOR VISIT Liletta insertion Insurance Providers [facility] Member Patient Patient Patient Patient Patient Subscriber Subscriber Subscriber Group Insurance Plan Plan Plan Plan ID Relationship Address Phone Name Date of ID Name Date of No Type Insurance Insurance Insurance Coverage to Subscriber Address Phone Name Dates [employer] [phone] [employer] self Diana [id number] Blue [id number] [place] [address] Cross/Blue [place] Cross/Blue [place] Shield [id number] Shield MEDICAL (GENERAL) HISTORY Type Description Date Medical History asthma Surgical History adnoidectomy/deviated septum 2000 Surgical History tonsilectomy 2010 Surgical History right meniscus repair 2012 Hospitalization History see above Hospitalization History child x 4
--- OUTSIDE RECORDS SUMMARY | 2019-04-28 16:17 | XMS REPORT ---
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 759490570 unspecified Problem Noninflammatory N90.9 Active 702038150 disorder of vulva and perineum, unspecified Problem Irregular N92.6 Active 35152426 menstruation, unspecified ALLERGIES Substance Reaction Event Type Date Status Milk hives/trouble breathing Drug Allergy Jan, Active ENCOUNTERS Encounter Location Date Diagnosis [facility] June, [place], [place] [id number] [facility] Mar, [place] [id number] [facility] Feb, [place]BG[place] [id number] [facility] Jan, Excessive and frequent OBGYN [facility], menstruation with regular [place] [address] cycle N92.0 and Encounter for insertion of intrauterine contraceptive device Z30.430 [facility] [address] Jan, [place]BG[place] [id number] [place] [facility] Jan, Excessive and frequent OBGYN [facility], menstruation with regular [place] [address] cycle N92.0 and Dysplasia of vulva, unspecified N90.3 [place] [facility] 103 Sep, Excessive and frequent OBGYN [facility], menstruation with regular [place] [address] cycle N92.0 and Dysplasia of vulva, unspecified N90.3 [place] [facility] [address] Aug, OBGYN [facility], [place] [id number] [place] [facility] 103 Aug, Dysplasia of vulva, OBGYN [facility], unspecified N90.3 [place] [id number] [place] [facility] 103 Aug, Excessive and frequent OBGYN [facility], menstruation with regular [place] [address] cycle N92.0 [place] [facility] 103 Aug, OBGYN [facility], [place] [id number] [place] [facility] [address] Aug, Excessive and frequent OBGYN [facility], menstruation with regular [place] [address] cycle N92.0 and Dysplasia of vulva, unspecified N90.3 [place] [facility] [address] Jul, Excessive and frequent OBGYN [facility], menstruation with regular [place] [address] cycle N92.0 and Dysplasia of vulva, unspecified N90.3 [place] [facility] [address] Jul, Excessive and frequent OBGYN [facility], menstruation with regular [place] [address] cycle N92.0 and Dysplasia of vulva, unspecified N90.3 [place] [facility] [address] Jul, OBGYN [facility], [place] [id number] [place] [facility] [address] June, OBGYN [facility], [place] [id number] [place] [facility] [address] June, Excessive and frequent OBGYN [facility], menstruation with regular [place] [address] cycle N92.0 and Noninflammatory disorder of vulva and perineum, unspecified N90.9 [place] [facility] [address] June, Irregular menstruation, OBGYN [facility], unspecified N92.6 [place] [id number] [place] [facility] [address] June, Irregular menstruation, OBGYN [facility], unspecified N92.6 and [place] [id number] Excessive and frequent menstruation with regular cycle N92.0 [place] [facility] [address] June, Encounter for [facility], gynecological examination [place] [id number] (general) (routine) with abnormal findings Z01.411 ; Encounter for screening for malignant neoplasm of cervix Z12.4 ; Irregular menstruation, unspecified N92.6 and Noninflammatory disorder of vulva and perineum, unspecified N90.9 [facility] May, OBGYN [facility], [place] [id number] [place] [facility] [address] May, Menorrhagia 626.2 ; PELVIC OBGYN [facility], PAIN 625.9 and Abdominal [place] [id number] pain, right upper quadrant 789.01 [facility] [facility] May, Menorrhagia 626.2 and OBGYN [facility], Dyspareunia 625.0 [place] [id number] [place] [facility] 103 Apr, Menorrhagia 626.2 and OBGYN [facility], Dyspareunia 625.0 [place] [id number] IMMUNIZATIONS No Known Immunizations SOCIAL HISTORY Never Assessed REASON FOR REFERRAL FUNCTIONAL STATUS PLAN OF CARE Activity Details Follow Up Schedule Liletta insertion (after preauth). Schedule vulvar colpo w/ me in March. Schedule annual w/Shani after 07-11-19 Reason: VITAL SIGNS Height 61 in 2019-01-25 Weight 221 lbs 2019-01-25 BMI 41.75 kg/m2 2019-01-25 Blood pressure systolic 108 mm Hg 2019-01-25 Blood pressure diastolic 76 mm Hg 2019-01-25 MEDICATIONS Unknown Medications PROCEDURES No Known procedures RESULTS No Results REASON FOR VISIT 3 month AUB fup Insurance Providers [facility] Member Patient Patient Patient Patient Patient Subscriber Subscriber Subscriber Group Insurance Plan Plan Plan Plan ID Relationship Address Phone Name Date of ID Name Date of No Type Insurance Insurance Insurance Coverage to Subscriber Address Phone Name Dates [employer] [phone] [employer] self Diana [id number] Blue [id number] Blue [place] 2 Cross/Blue [place] Shield [id number] Shield MEDICAL (GENERAL) HISTORY Type Description Date Medical History asthma Surgical History adnoidectomy/deviated septum 2000 Surgical History tonsilectomy 2010 Surgical History right meniscus repair 2012 Hospitalization History see above Hospitalization History child x 4
--- OUTSIDE RECORDS SUMMARY | 2019-04-28 16:17 | XMS REPORT ---
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 546542740 unspecified Problem Noninflammatory N90.9 Active 763835915 disorder of vulva and perineum, unspecified Problem Irregular N92.6 Active 82041661 menstruation, unspecified ALLERGIES Substance Reaction Event Type Date Status Milk hives/trouble breathing Drug Allergy Feb, Active ENCOUNTERS Encounter Location Date Diagnosis [facility] June, OBGYN [place], [place] [id number] [facility] 17 Mar, 2019 OBGYN [place], [place] [id number] [facility] Feb, Encounter for routine OBGYN [facility], checking of intrauterine [place] [id number] contraceptive device Z30.431 [facility] Jan, Excessive and frequent OBGYN [facility], menstruation with regular [place] [id number] cycle N92.0 and Encounter for insertion of intrauterine contraceptive device Z30.430 [facility] Jan, OBGYN [place], [place] [id number] [facility] Jan, Excessive and frequent OBGYN [facility], menstruation with regular [place] [id number] cycle N92.0 and Dysplasia of vulva, unspecified N90.3 [facility] Sep, Excessive and frequent OBGYN [facility], menstruation with regular [place] [address] cycle N92.0 and Dysplasia of vulva, unspecified N90.3 [facility] Aug, OBGYN [facility], [place] [id number] [facility] Aug, Dysplasia of vulva, OBGYN [facility], unspecified N90.3 [place] [id number] [facility] Aug, Excessive and frequent OBGYN [facility], menstruation with regular [place] [id number] cycle N92.0 [facility] Aug, OBGYN [facility], [place] [id number] [facility] Aug, Excessive and frequent OBGYN [facility], menstruation with regular [place] [id number] cycle N92.0 and Dysplasia of vulva, unspecified N90.3 [facility] Jul, Excessive and frequent OBGYN [facility], menstruation with regular [place] [id number] cycle N92.0 and Dysplasia of vulva, unspecified N90.3 [facility] Jul, Excessive and frequent OBGYN [facility], menstruation with regular [place] [address] cycle N92.0 and Dysplasia of vulva, unspecified N90.3 [facility] Jul, OBGYN [facility], [place] [id number] [facility] June, OBGYN [facility], [place] [id number] [facility] June, Excessive and frequent OBGYN [facility], menstruation with regular [place] [id number] cycle N92.0 and Noninflammatory disorder of vulva and perineum, unspecified N90.9 [facility] June, Irregular menstruation, OBGYN [facility], unspecified N92.6 [place] [id number] [facility] June, Irregular menstruation, OBGYN [facility], unspecified N92.6 and [place] [id number] Excessive and frequent menstruation with regular cycle N92.0 [facility] June, Encounter for [facility], gynecological examination [place] [id number] (general) (routine) with abnormal findings Z01.411 ; Encounter for screening for malignant neoplasm of cervix Z12.4 ; Irregular menstruation, unspecified N92.6 and Noninflammatory disorder of vulva and perineum, unspecified N90.9 [facility] May, OBGYN [facility] [place] [id number] [facility] May, Menorrhagia 626.2 ; PELVIC OBGYN [facility], PAIN 625.9 and Abdominal [place] [id number] pain, right upper quadrant 789.01 [facility] May, Menorrhagia 626.2 and OBGYN [facility], Dyspareunia 625.0 [place] [id number] [facility] Apr, Menorrhagia 626.2 and OBGYN [facility], Dyspareunia 625.0 [place] [id number] IMMUNIZATIONS No Known Immunizations SOCIAL HISTORY Never Assessed REASON FOR REFERRAL FUNCTIONAL STATUS PLAN OF CARE Activity Details Follow Up as scheduled Reason: VITAL SIGNS Height 61 in 2019-03-11 Weight 222 lbs 2019-03-11 BMI 41.94 kg/m2 2019-03-11 Blood pressure systolic 100 mm Hg 2019-03-11 Blood pressure diastolic 60 mm Hg 2019-03-11 MEDICATIONS Medication Instructions Dosage Frequency Start Date End Date Duration Status Liletta 52 mg by intrauterine 1 ea 1 dose(s) Active administration once PROCEDURES No Known procedures RESULTS No Results REASON FOR VISIT 4-6 weeks IUD check Insurance Providers [facility] Member Patient Patient Patient Patient Patient Subscriber Subscriber Subscriber Group Insurance Plan Plan Plan Plan ID Relationship Address Phone Name Date of ID Name Date of No Type Insurance Insurance Insurance Coverage to Subscriber Address Phone Name Dates [employer] [phone] [employer] self Diana [id number] Blue [id number] [place] [address] Cross/Blue [place] Cross/Blue [place] Shield [id number] Shield MEDICAL (GENERAL) HISTORY Type Description Date Medical History asthma Surgical History adnoidectomy/deviated septum 2000 Surgical History tonsilectomy 2010 Surgical History right meniscus repair 2013 Hospitalization History see above Hospitalization History child x 4
--- NOTE | 2019-04-28 16:28 | UC ---
Throat Pain/Nasal Mike HPI - HPI Summary HPI Summary: 38 y/o female presents to the urgent care c/o Malaise, fatigue for 4-5 days; nausea,sore throat, chills and body aches. Yesterday sore throat worsen w/ cold sweats, but not fever. This morning she had nausea. Pain w/ swallowing is 6/10. 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 Pt has taken Tylenol PO to alleviate symptoms. Pt denies recent travel [id number] the country, fever, cough, SOB, chest pain,abdominal pain, N/V/D - History of Current Complaint Stated Complaint: ST, EAR COMPAINT, CHILLS Time Seen by Provider: 04/28/19 16:25 Hx Obtained From: Patient Hx Last Menstrual Period: "couple weeks ago" Onset/Duration: Gradual Onset, Lasting Days - 4-5 days, Still Present, Worse Since - sore throat yesterday Severity: Moderate Pain Intensity: 6 - sore throat Pain Scale Used: 0-10 Numeric - Allergies/Home Medications Allergies/Adverse Reactions: Allergies Allergy/AdvReac Type Severity Reaction Status Date / Time milk Allergy Hives Uncoded 04/28/19 16:30 Home Medications: Home Medications Atomoxetine HCl [Strattera] 80 mg PO QAM 04/28/19 [History Confirmed 04/28/19] Ibuprofen TAB* [Motrin TAB* 400 MG] 400 mg PO Q6H PRN 04/28/19 [History Confirmed 04/28/19] PMH/Surg Hx/FS Hx/Imm Hx Previously Healthy: Yes Respiratory History: Asthma - controlled for many years - Surgical History Surgical History: Yes Surgery Procedure, Year, and Place: T & A, R knee TORN MENISCUS, sinus surgery 2000 - Family History Known Family History: Positive: Cardiac Disease, Hypertension, Diabetes - Social History Occupation: Employed Full-time Lives: With Family Alcohol Use: Occasionally Alcohol Amount: 1-2 Substance Use Type: None Smoking Status (MU): Former Smoker Type: Cigarettes Length of Time of Smoking/Using Tobacco: ~1 PPD x 12 Years When Did the Patient Quit Smoking/Using Tobacco: ~2008 - Immunization History Most Recent Influenza Vaccination: not current Most Recent Tetanus Shot: 2007 Vaccination Up to Date: Yes Review of Systems All Other Systems Reviewed And Are Negative: Yes Constitutional: Positive: Chills, Fatigue, Other - body aches Skin: Positive: Negative Eyes: Positive: Negative ENT: Positive: Sore Throat, Nasal Discharge - clear, Sinus Congestion - mild, Other - mild PND Respiratory: Positive: Negative Cardiovascular: Positive: Negative Gastrointestinal: Positive: Negative Genitourinary: Positive: Negative Motor: Positive: Negative Neurovascular: Positive: Negative Musculoskeletal: Positive: Myalgia Neurological/Mental Status: Positive: Negative Psychological: Positive: Negative Is Patient Immunocompromised?: No Physical Exam - Summary Physical Exam Summary: VITAL SIGNS: Reviewed. GENERAL: Patient is a well developed and nourished obese female who is sitting comfortably in the examining table. Patient is not in any acute respiratory distress. HEAD AND FACE: No signs of trauma. No ecchymosis, hematomas or skull depressions. No sinus tenderness. EYES: PERRLA, EOMI x 2, No injected conjunctiva, no nystagmus. No photophobia. EARS: Hearing grossly intact. Ear canals and tympanic membranes are within normal limits. MOUTH: Positive pharynx with mild erythema, no exudates, No B/L tonsillar enlargement , no exudate. Uvula in midline. edematous nasal mucosa w/ clear nasal discharge, clear PND NECK: Supple, trachea is midline, Positive anterior cervical lymphadenopathy, no JVD, no carotid bruit, no c-spine tenderness, neck with full ROM. No meningeal signs, no Kernig's or brudzinskis signs. CHEST: Symmetric, no tenderness at palpation LUNGS: Clear to auscultation bilaterally. No wheezing or crackles. CVS: Regular rate and rhythm, S1 and S2 present, no murmurs or gallops appreciated. ABDOMEN: Soft, non-tender. No signs of distention. No rebound no guarding, and no masses palpated. Bowel sounds are normal. EXTREMITIES: FROM in all major joints, no edema, no cyanosis or clubbing. NEURO: Alert and oriented x 3. No acute neurological deficits. Pt follows commands. SKIN: Dry and warm Triage Information Reviewed: Yes Throat Pain/Nasal Course/Dx - Course Course Of Treatment: 38 y/o female presents to the urgent care c/o Malaise, fatigue for 4-5 days; nausea,sore throat, chills and body aches. Yesterday sore throat worsen w/ cold sweats, but not fever. This morning she had nausea. Pain w/ swallowing is 6/10. 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 Pt has taken Tylenol PO to alleviate symptoms. Pt denies recent travel [id number] the country, fever, cough, SOB, chest pain,abdominal pain, N/V/D. Hx obtained. Pt is hemodynamically stable, A&OX3, pharyngitis on examination. Rapid strep: negative, Rapid influenza A&B: negative. Pt given Ibuprofen PO at [facility] to alleviate symptoms. Pt advise to take ibuprofen PO to alleviates symptoms of pain and swelling. Advised on hand washing to avoid spreading. Pt advised to rest, eat well and avoid strenuous exercise. If symptoms do not improve or worsen advised to return to the urgent care or f/u with her PCP for further evaluation and treatment. Pt understood and agreed w/ plan of care. - Differential Dx/Diagnosis Differential Diagnosis/HQI/PQRI: Influenza, Laryngitis, Mononucleosis, Pharyngitis, Sinusitis, Tonsillitis, URI Provider Diagnosis: Acute viral pharyngitis Discharge ED - Sign-Out/Discharge Documenting (check all that apply): Patient Departure - D/c home All imaging exams completed and their final reports reviewed: No Studies - Discharge Plan Condition: Stable Disposition: HOME Patient Education Materials: Pharyngitis (ED) Forms: *Work Release Referrals: Maria Arnold, CASTING WHEEL OPERATOR [Primary Care Provider] - 3 Days Additional Instructions: 1-Rapid strep: negative, Rapid Influenza A&B: negative 2-Please continue taking ibuprofen PO q6-8hrs prn as instructed after meals to alleviate pain and swelling. Increase fluid intake, eat well, rest and avoid strenuous exercise 3-If symptoms do not improve or worsen please f/u with your PCP in 3 days for further evaluation and treatment. - Billing Disposition and Condition Condition: STABLE Disposition: Home
[2019-04-28 16:30] VITALS: BP 121/67
[2019-04-28] MEDS ORDERED: Ibuprofen TAB* 400 MG PO ONE (16:44)
[2019-04-28 17:00] LABS: Influenza A Molecular Negative (Negative); Influenza B Molecular Negative (Negative)
== END 2019-04-28 17:10 | disposition home or self-care (01) ==
LOC: UCCORT 15:46
DX: J02.8 Acute pharyngitis due to other specified organisms (principal); J45.909 Unspecified asthma, uncomplicated; M79.10 Myalgia, unspecified site; Z91.011 Allergy to milk products; Z87.891 Personal history of nicotine dependence
CPT/HCPCS: 87651; 99211; A9270-GY; G0463